=== PATIENT | female | born 1950 ===

== ENCOUNTER → 2017-01-22 | Outpatient (CLI) | payer MEDICARE, OTHER | END | disposition disaster alternative care site (69) | LOC: LKCL 17:19 | DX: R10.31 Right lower quadrant pain (principal); K92.1 Melena; K59.1 Functional diarrhea ==

== ENCOUNTER → 2017-01-28 | Outpatient (CLI) | payer MEDICARE, OTHER | END | disposition disaster alternative care site (69) | LOC: LHSC 11:09 | DX: R19.7 Diarrhea, unspecified (principal) ==